=== PATIENT | female | born 1980 | race Caucasian/White ===

== ENCOUNTER 2017-03-21 09:03 | Inpatient (IN) | payer BC ==
[2017-03-21] VITALS (25 sets, daily range): BP systolic 92–138; BP diastolic 50–72; PULSE 55–82; TEMP 98.4–98.5
[~2017-03-21 09:03] MED LIST: MOTRIN 600600 MG/TAB PO; PERCOCET 325 MG1 TA2 PO; PRENATAL1 TA7 PO
[2017-03-21 11:54] LABS: BASO # 0.1 (0.0-0.2); BASO % 0.5 % (0.0-2.0); EOS # 0.2 (0.0-0.7); EOS % 1.2 % (0-4.0); GRAN # 10.8 (1.4-6.5); GRAN % 74.1 % (42.2-75.2); HEMATOCRIT 38.8 % (37.0-47.0); HEMOGLOBIN 13.6 g/dl (12.5-16.0); LYMPH # 2.8 (1.2-3.4); LYMPH % 19.2 % (20.0-51.0); MEAN CELL VOLUME 86 fl (80.0-100.0); MEAN CORPUSCULAR HEMOGLOBIN 30 pg (27.0-31.0); MEAN CORPUSCULAR HGB CONC 35 g/dl (33.0-37.0); MEAN PLATELET VOLUME 10.2 fl (7.4-10.4); MONO # 0.6 (0.1-0.6); MONO % 4.2 % (1.7-9.3); PLATELET COUNT 322 K/mm3 (130-400); RED BLOOD COUNT 4.49 M/mm3 (4.10-5.30); WHITE BLOOD COUNT 14.5 K/mm3 (4.8-10.8)
[2017-03-22 00:15] VITALS: BP 95/52; PULSE 70; TEMP 98.1
[2017-03-22 01:00] VITALS: BP 92/50; PULSE 62
[2017-03-22 03:07] VITALS: BP 87/49; PULSE 65; TEMP 98
[2017-03-22 07:40] LABS: BASO # 0.1 (0.0-0.2); BASO % 0.5 % (0.0-2.0); EOS # 0.3 (0.0-0.7); EOS % 2.4 % (0-4.0); GRAN # 9.5 (1.4-6.5); GRAN % 73.6 % (42.2-75.2); LYMPH # 2.3 (1.2-3.4); MEAN CELL VOLUME 89 fl (80.0-100.0); MEAN CORPUSCULAR HGB CONC 34 g/dl (33.0-37.0); MONO # 0.6 (0.1-0.6); PLATELET COUNT 277 K/mm3 (130-400); RED BLOOD COUNT 3.67 M/mm3 (4.10-5.30); REDCELL DISTRIBUTION WIDTH-CV 13.1 % (11.5-14.5); WHITE BLOOD COUNT 12.9 K/mm3 (4.8-10.8)
[2017-03-22 07:48] LABS: HEMATOCRIT 32.7 % (37.0-47.0); HEMOGLOBIN 11.1 g/dl (12.5-16.0); MEAN CORPUSCULAR HEMOGLOBIN 30 pg (27.0-31.0)
[2017-03-22 07:51] VITALS: BP 111/55; PULSE 73; TEMP 99
[2017-03-22] MEDS ORDERED: IBU800 M1 PO (09:12)
== END 2017-03-22 11:00 | disposition home or self-care (01) | DRG 767 ==
LOC: OB 09:03 → LDR 10:46
PROVIDERS: Obstetrics & Gynecology; Student in an Organized Health Care Education/Training Program
PROC: 10E0XZZ Delivery of Products of Conception, External Approach (ICD-10-PCS; principal; 2017-03-21)
PROC: 10D17ZZ Extraction of Products of Conception, Retained, Via Natural or Artificial Opening (ICD-10-PCS; 2017-03-21)
PROC: 3E033VJ Introduction of Other Hormone into Peripheral Vein, Percutaneous Approach (ICD-10-PCS; 2017-03-21)
DX: O36.4XX0 Maternal care for intrauterine death, not applicable or unspecified (principal); O72.2 Delayed and secondary postpartum hemorrhage; O09.523 Supervision of elderly multigravida, third trimester; O09.43 Supervision of pregnancy with grand multiparity, third trimester; Z3A.16 16 weeks gestation of pregnancy; Z37.1 Single stillbirth
CPT/HCPCS: J1885; J2210; J2270; J2405; J2704; J3010; J7120

== ENCOUNTER 2018-02-25 07:03 | Inpatient (IN) | payer OTHER ==
[2018-02-25] VITALS (61 sets, daily range): BP systolic 83–147; BP diastolic 46–72; PULSE 65–100; TEMP 97.6–98.5
[~2018-02-25] VITALS: Ht 162.7 cm; Wt 79.1 kg
[~2018-02-25 07:03] MED LIST changes: +IBU800 M1 PO
[2018-02-25 08:28] LABS: BASO # 0.1 (0.0-0.2); BASO % 0.5 % (0.0-2.0); EOS # 0.3 (0.0-0.7); EOS % 1.7 % (0-4.0); GRAN # 12.9 (1.4-6.5); GRAN % 70.2 % (42.2-75.2); HEMATOCRIT 36.4 % (37.0-47.0); HEMOGLOBIN 12.3 g/dl (12.5-16.0); LYMPH # 3.6 (1.2-3.4); LYMPH % 19.7 % (20.0-51.0); MEAN CELL VOLUME 90 fl (80.0-100.0); MEAN CORPUSCULAR HEMOGLOBIN 30 pg (27.0-31.0); MEAN CORPUSCULAR HGB CONC 34 g/dl (33.0-37.0); MEAN PLATELET VOLUME 11.3 fl (7.4-10.4); MONO # 1.3 (0.1-0.6); MONO % 6.9 % (1.7-9.3); PLATELET COUNT 329 K/mm3 (130-400); RED BLOOD COUNT 4.05 M/mm3 (4.10-5.30); REDCELL DISTRIBUTION WIDTH-CV 14.2 % (11.5-14.5)
[2018-02-26] VITALS (7 sets, daily range): BP systolic 9–135; BP diastolic 46–76; PULSE 75–110; TEMP 97.8–98.4
[2018-02-26 06:06] LABS: BASO # 0.1 (0.0-0.2); BASO % 0.4 % (0.0-2.0); EOS # 0.1 (0.0-0.7); EOS % 0.6 % (0-4.0); GRAN # 12.8 (1.4-6.5); GRAN % 75.4 % (42.2-75.2); LYMPH # 3.1 (1.2-3.4); LYMPH % 18.2 % (20.0-51.0); MEAN CELL VOLUME 89 fl (80.0-100.0); MEAN CORPUSCULAR HGB CONC 34 g/dl (33.0-37.0); MEAN PLATELET VOLUME 11.2 fl (7.4-10.4); MONO # 0.8 (0.1-0.6); MONO % 4.8 % (1.7-9.3); PLATELET COUNT 287 K/mm3 (130-400); RED BLOOD COUNT 3.22 M/mm3 (4.10-5.30); REDCELL DISTRIBUTION WIDTH-CV 14.3 % (11.5-14.5)
[2018-02-26 06:16] LABS: HEMATOCRIT 28.8 % (37.0-47.0); MEAN CORPUSCULAR HEMOGLOBIN 30 pg (27.0-31.0)
[2018-02-26 06:17] LABS: HEMOGLOBIN 9.8 g/dl (12.5-16.0)
[2018-02-27] MEDS ORDERED: IBU600 MG PO (09:00)
[2018-02-27] MEDS ORDERED: PERCOCET 325 MG1 TA2 PO (09:00)
[2018-02-27 09:07] VITALS: BP 117/65; PULSE 90; TEMP 97.8
== END 2018-02-27 19:25 | disposition home or self-care (01) | DRG 766 ==
LOC: LDR 07:03 → OB 07:03 → LDR 17:17 → OB 22:00
PROVIDERS: Obstetrics & Gynecology
PROC: 10D00Z1 Extraction of Products of Conception, Low, Open Approach (ICD-10-PCS; principal; 2018-02-25)
DX: O62.1 Secondary uterine inertia (principal); O34.211 Maternal care for low transverse scar from previous cesarean delivery; N85.8 Other specified noninflammatory disorders of uterus; Z3A.39 39 weeks gestation of pregnancy; Z37.0 Single live birth
CPT/HCPCS: J0690; J1885; J2175; J2250; J2370; J2400; J2405; J2590; J2795; J3010; J7120

== ENCOUNTER 2021-07-01 05:15 | Inpatient (IN) | payer OTHER ==
[~2021-07-01] VITALS: Ht 162.6 cm; Wt 77.3 kg
[2021-07-01] VITALS (19 sets, daily range): BP systolic 96–1074; BP diastolic 45–74; PULSE 60–83; TEMP 97.9–98.5
[~2021-07-01 05:15] MED LIST changes: +IBU600 MG PO
--- NOTE | 2021-07-01 05:30 | NUR ---
[id number] arrives to unit ambulatory for repeat section. Pt is known covid positive and placed on isolation precautions upon arrival. Pt reports feeling good movement, denies contractions or vaginal bleeding. Denies headaches, blurry vision, or RUQ pain. Pt oriented to room, bed in low and locked position, call light within reach. Clean gown on. US and toco explained and applied. Vital signs obtained. 18G IV started in left forearm. Admission labs obtained off IV start. Lactated ringers infusing to gravity. Consents reviewed and signed with patient and spouse.
[2021-07-01 06:15] LABS: BASO # 0.1 (0.0-0.2); BASO % 0.6 % (0.0-2.0); EOS # 0.3 (0.0-0.7); GRAN # 9.6 (1.4-6.5); GRAN % 66.7 % (42.2-75.2); HEMOGLOBIN 11.8 g/dl (12.5-16.0); LYMPH # 3.2 (1.2-3.4); LYMPH % 22.3 % (20.0-51.0); MEAN CELL VOLUME 89 fl (80.0-100.0); MEAN CORPUSCULAR HEMOGLOBIN 30 pg (27.0-31.0); MEAN CORPUSCULAR HGB CONC 33 g/dl (33.0-37.0); MEAN PLATELET VOLUME 12.1 fl (7.4-10.4); PLATELET COUNT 232 K/mm3 (130-400); RED BLOOD COUNT 3.95 M/mm3 (4.10-5.30); REDCELL DISTRIBUTION WIDTH-CV 13.7 % (11.5-14.5)
[2021-07-01 06:27] LABS: HEMATOCRIT 35.3 % (37.0-47.0)
--- NOTE | 2021-07-01 07:23 | NUR ---
FHT: 0715: DIFFICULTY TRACING FHT DUE TO MOVEMENT. SPOT CHECK [id number]
--- NOTE | 2021-07-01 09:04 | NUR ---
0840: IN OR, AFTER , FUNDUS WAS FIRM, ONE FINGERBREDTH ABOVE UMBILICUS. TRANSFERRING TO PACU
--- NOTE | 2021-07-01 10:47 | NUR ---
DURING , DILCIA WAS USED BY DR. DICKERSON FOR BLEEDING
[2021-07-02 05:20] VITALS: BP 112/62; PULSE 62; TEMP 98.1
--- NOTE | 2021-07-02 07:01 | NUR ---
PATIENT COVID +, NO BEDSIDE REPORT. REPORT RECEIVED FROM OFF GOING RN, AUSTYN Maloney. CARE TAKEN OVER BY THIS RN.
[2021-07-02] MEDS ORDERED: MOTRIN 600600 MG/TAB PO (08:17)
[2021-07-02] MEDS ORDERED: PERCOCET 325 MG1 TA2 PO (08:18)
[2021-07-02 08:48] VITALS: BP 101/64; PULSE 68; TEMP 98
== END 2021-07-02 16:05 | disposition home or self-care (01) | DRG 786 ==
LOC: LDR 05:15
PROVIDERS: ADMIT Obstetrics & Gynecology
PROC: 10D00Z1 Extraction of Products of Conception, Low, Open Approach (ICD-10-PCS; principal; 2021-07-01)
DX: O34.211 Maternal care for low transverse scar from previous cesarean delivery (principal); U07.1 COVID-19; O99.52 Diseases of the respiratory system complicating childbirth; J98.8 Other specified respiratory disorders; O99.02 Anemia complicating childbirth; D64.9 Anemia, unspecified; Z3A.39 39 weeks gestation of pregnancy; Z37.0 Single live birth
CPT/HCPCS: J0690; J1885; J2175; J2210; J2250; J2270; J2370; J2405; J2590; J7120